=== PATIENT | male | born 1995 | race Caucasian/White ===

== ENCOUNTER 2016-07-02 11:59 | Emergency (ER) | payer SELFPAY ==
[~2016-07-02] VITALS: Ht 165.1 cm; Wt 60.0 kg
[2016-07-02 12:01] VITALS: BP 127/71; PULSE 64; RESP 20; TEMP 98.6; O2SAT 95
--- NOTE | 2016-07-02 12:09 | PD ---
Physical Exam Date Seen by Provider: July 02, 2016 Time Seen by Provider: 12:08 Narrative 20 year old male presents to the emergency department for evaluation of left eye erythema, itching since . He states he was cutting wood when it occurred. He was sent by Dr. Gómez for left eye foreign body. Vital signs reviewed. Patient seen in triage, awaiting bed placement. Data Data Last Documented VS Vital Signs Date Time Temp Pulse Resp B/P Pulse Ox O2 Delivery O2 Flow Rate FiO2 07/02/16 12:01 98.6 64 20 127/71 95 Room Air [facility] Supervised Visit with LISA: Elsa Beth July 02, 2016 12:09
[2016-07-02] MEDS ORDERED: IBUP800T23 PO (12:22)
[2016-07-02] MEDS ORDERED: ERYTOIN10 RIGHT EYE (12:22)
--- NOTE | 2016-07-02 12:23 | PD ---
HPI Chief Complaint: Foreign Body Time Seen by Provider: 12:21 Travel History International Travel<30 days: No Contact w/Intl Traveler<30days: No Traveled to known affect area: No History of Present Illness HPI 20-year-old male presents to the emergency Department with complaint of right eye pain and foreign body 2 days after cutting wood. He was seen prior to arrival to the ER, by Dr. Gómez, and was referred to the ER. Reports blurry vision. Reports clear drainage. Denies fever, vomiting. Has not taken any medications or tried any treatments to the symptoms. No known allergies. Has no other medical complaints. No other modifying factors or associated signs and symptoms. PFSH Social History Tobacco Use: No Allergies-Medications (Allergen,Severity, Reaction): Coded Allergies: No Known Allergies (Unverified , 07/02/16) Reported Meds & Prescriptions Reported Meds & Active Scripts Active Ibuprofen 800 Mg Tab 800 Mg PO Q6HR PRN Erythromycin Opth Oint 5 Mg/Gm Oint 1 Applic RIGHT EYE QID 7 Days Review of Systems Except as stated in HPI: all other systems reviewed are Neg Physical Exam Narrative GENERAL: Well-nourished, well-developed male patient, in no acute distress SKIN: Warm and dry. HEAD: Atraumatic. Normocephalic. EYES: Pupils equal and round at 3 mm with brisk reaction. PERRLA. EOMI. right lid eversion with no foreign body noted. Right eye with scleral erythema and without lid edema. No orbital tenderness, erythema or cellulitis. Right eye with photophobia. No consensual photophobia. No scleral icterus. Clear drainage. Clark lamp exam reveals a corneal abrasion at the 2:00 position over the iris. No foreign body noted. ENT: Mucosa pink and moist. Airway patent. NECK: Trachea midline. CARDIOVASCULAR: Regular rate. RESPIRATORY: No accessory muscle use. GASTROINTESTINAL: Flat. NEUROLOGICAL: Awake and alert. Oriented 3. No obvious cranial nerve deficits. Motor grossly within normal limits. Normal speech. PSYCHIATRIC: Appropriate mood and affect; insight and judgment normal. Data Data Last Documented VS Vital Signs Date Time Temp Pulse Resp B/P Pulse Ox O2 Delivery O2 Flow Rate FiO2 07/02/16 12:01 98.6 64 20 127/71 95 Room Air Orders Mandatory Outpatient Referral (07/02/16 12:24) [facility] Medical Decision Making Medical Screen Exam Complete: Yes Emergency Medical Condition: Yes Medical Record Reviewed: Yes Differential Diagnosis Corneal abrasion, impacted foreign body, foreign body, corneal ulceration Narrative Course 20-year-old male with right eye corneal abrasion. Erythromycin and ibuprofen prescribed for home. Mandatory outpatient ophthalmology follow-up ordered as patient does not have insurance. Instructed patient to follow up with ophthalmology on Monday. Patient verbalizes understanding and agreement with treatment plan. Patient is medically cleared and stable for discharge. Discussed reasons to return to the emergency department. Instructed patient to follow up with primary care provider. Patient agrees with treatment plan. The patients vital signs are stable and the patient is stable for outpatient follow- up and treatment. Patient discharged home, stable and in no acute distress. Diagnosis Primary Impression: Corneal abrasion, right Qualified Code: S05.01XA - Corneal abrasion, right, initial encounter Referrals: Environmental Health Specialist Primary Care Physician Patient Instructions: Corneal Abrasion (ED), General Instructions Departure Forms: Tests/Procedures, Work Release Enter return to work date: July 05, 2016 Additional Instructions: Ibuprofen or Tylenol as directed and as needed to reduce pain Do not patch the eye Do not rub the eye Refrigerated eye drops as needed to reduce pain Cool compresses to the eye as needed to reduce pain Follow-up with ophthalmology on Monday; a mandatory referral has been placed for you to follow-up with an gas tester; U will be called to schedule an appointment Primary care provider Return to the emergency department immediately with worsening of symptoms Med/Other Pt SpecificInfo: Prescription(s) given Scripts Ibuprofen 800 Mg Sox934 Mg PO Q6HR PRN (PAIN) #30 TAB Ref 0 Prov:Berta Kim 07/02/16 Erythromycin Opth Oint 5 Mg/Gm Oint1 Applic RIGHT EYE QID 7 Days Ref 0 Prov:Berta Kim 07/02/16 Disposition: DISCHARGE HOME Condition: Stable Berta Kim July 02, 2016 12:23
== END 2016-07-02 12:48 | disposition home or self-care (01) ==
LOC: NEPK 11:59
DX: S05.01XA Injury of conjunctiva and corneal abrasion without foreign body, right eye, initial encounter (principal); H53.8 Other visual disturbances; W45.8XXA Other foreign body or object entering through skin, initial encounter; Y93.89 Activity, other specified; Y92.007 Garden or yard of unspecified non-institutional (private) residence as the place of occurrence of the external cause
CPT/HCPCS: 99283